=== PATIENT | female | born 1995 | race Caucasian/White ===

== ENCOUNTER 2016-07-02 12:38 | Emergency (ER) | payer OTHER ==
[2016-07-02] MEDS ORDERED: Ondansetron INJ* 2 MG/ML VIAL IV ONE (13:30)
[2016-07-02] MEDS ORDERED: NS 0.9% 1000 ML* 1,000 ML IV ONE (13:30)
[2016-07-02 13:57] LABS: Hematocrit 41 % (35-47); Hemoglobin 13.4 g/dl (12.0-16.0); Mean Corpuscular HGB Conc 33 g/dl (31-36); Mean Corpuscular Hemoglobin 28 pg (27-31); Mean Corpuscular Volume 84 fL (80-97); Mean Platelet Volume 6 um3 (7.4-10.4); Red Blood Count 4.82 10^6/ul (4.0-5.4); Red Cell Distribution Width 13 % (10.5-15); White Blood Count 7.6 10^3/ul (3.5-10.8)
[2016-07-02 14:12] LABS: Albumin 4.8 g/dL (3.2-5.2); BUN/Creatinine Ratio 17.9 (8-20); Calcium 9.9 mg/dL (8.6-10.3); EGFR African American 121.1 (>60); EGFR Non-African American 94.2 (>60); Globulin 3.2 g/dL (2-4); Potassium 3.7 mmol/L (3.5-5.0); Total Bilirubin 0.9 mg/dL (0.2-1.0)
--- NOTE | 2016-07-02 14:29 | RAD ---
INDICATION: Right upper quadrant pain COMPARISON: None TECHNIQUE: Longitudinal and transverse scans of the right upper quadrant were obtained. Doppler interrogation of the hepatic and portal venous system was performed. FINDINGS: Liver: The liver is normal in size and echogenicity. There are no focal masses. The liver measures 14.9 cm in cephalocaudal dimension. Vessels: There is normal hepatic and portal venous flow. Bile ducts: There is no evidence of intrahepatic or extrahepatic ductal dilatation. The common duct measures 0.2 cm. Gallbladder: The sonographic appearance of the gallbladder is normal. There is no evidence of cholelithiasis, thickening of the gallbladder wall, or pericholecystic fluid. Pancreas: The visualized pancreas appears normal Right kidney: The right kidney is normal in size and echogenicity. There are no masses or calculi. There is no evidence of hydronephrosis. The right kidney measures 11.7 x 3.5 x 4.0 cm. Fluid: There is no ascites. Other: None. IMPRESSION: NORMAL GALLBLADDER.
[2016-07-02 15:09] VITALS: BP 109/61
[2016-07-02 15:18] LABS: UR Preg Internal Control QC Line Present
[2016-07-02 15:22] LABS: Urine Bacteria Absent (Absent); Urine Bilirubin Negative (Negative); Urine Glucose Negative (Negative); Urine Nitrite Negative (Negative)
--- NOTE | 2016-07-02 15:38 | ED ---
Chuck Vigil Rebecca, scribed for Margarito Michelle MD on 07/02/16 at 1321 . Abdominal Pain/Female - HPI Summary HPI Summary: Pt is a 20 y/o F who presents to ED c/o abdominal pain. Pain began suddenly 4 days ago and has been intermittent since onset, wavering in intensity. Pain is diffuse with radiation to the back. Pain is currently ranked 7/10 and characterized as sharp. Sx aggravated by PO intake and walking, alleviated by nothing. Additionally c/o N/V/D, decreased urine output. Denies blood in stools. Denies fever, chills. Reports she cannot keep PO intake down and has lost 4 pounds in the last 48 hours. No recent sick contact. No recent Abx or hospital stays. FHx gallbladder disease (aunt and grandmother in their late 20s/ early 30s). LNMP 06/10/2016, takes oral contraceptives. - History of Current Complaint Chief Complaint: EDAbdPain Stated Complaint: ABD PAIN Time Seen by Provider: 07/02/16 13:20 Hx Obtained From: Patient Hx Last Menstrual Period: ended last week Onset/Duration: Sudden Onset, Lasting Days - 4 days, Still Present Timing: Intermittent Episode Lasting Severity Initially: Moderate Severity Currently: Severe Pain Intensity: 7 Pain Scale Used: 0-10 Numeric Location: Diffuse Radiates: Yes Radiates to: Back Character: Sharp Aggravating Factor(s): Food, Movement - walking, Other: - Water Alleviating Factor(s): Nothing Associated Signs and Symptoms: Positive: Nausea, Vomiting, Diarrhea, Other: - Decreased urine output; Denies chills. Negative: Fever, Blood in Stool Allergies/Adverse Reactions: Allergies Allergy/AdvReac Type Severity Reaction Status Date / Time No Known Allergies Allergy Unverified 08/14/14 17:39 PMH/Surg Hx/FS Hx/Imm Hx Endocrine/Hematology History: Denies: Hx Diabetes, Hx Thyroid Disease Cardiovascular History: Denies: Hx Hypercholesterolemia, Hx Hypertension, Hx Peripheral Vascular Disease Respiratory History: Denies: Hx Asthma, Hx Chronic Obstructive Pulmonary Disease (COPD) GI History: Denies: Hx Ulcer Musculoskeletal History: Denies: Hx Arthritis, Hx Rheumatoid Arthritis, Hx Osteoporosis Sensory History: Denies: Hx Cataracts, Hx Contacts or Glasses, Hx Glaucoma Opthamlomology History: Denies: Hx Cataracts, Hx Contacts or Glasses, Hx Glaucoma Neurological History: Denies: Hx Headaches, Hx Seizures, Hx Transient Ischemic Attacks (TIA) Psychiatric History: Reports: Hx Anxiety Denies: Hx Depression - Surgical History Surgery Procedure, Year, and Place: wiwsdom teeth Infectious Disease History: No Infectious Disease History: Denies: Hx Clostridium Difficile, Hx Hepatitis, Hx Human Immunodeficiency Virus (HIV), Hx of Known/Suspected MRSA, Hx Shingles, Hx Tuberculosis, Hx Known/ Suspected VRE, Hx Known/Suspected VRSA, History Other Infectious Disease, Traveled Outside the [place] in Last 30 Days - Family History Known Family History: Positive: Other - FHx gallbladder disease (grandmother and aunt) - Social History Occupation: Student Alcohol Use: None Substance Use Type: Reports: None Smoking Status (MU): Never Smoked Tobacco Review of Systems Negative: Fever, Chills Negative: Erythema Negative: Sore Throat Negative: Chest Pain Negative: Shortness Of Breath, Cough Positive: Abdominal Pain - diffuse with radiaiotn to the back, Vomiting, Diarrhea, Nausea Positive: other - Decreased urine output and blood in stool. Negative: dysuria , hematuria Negative: Myalgia, Edema Negative: Rash Neurological: Other - Negative dizziness All Other Systems Reviewed And Are Negative: Yes Physical Exam - Summary Physical Exam Summary: Constitutional: Well-developed, Well-nourished, Alert. (-) Distressed Skin: Warm, Dry HENT: Normocephalic; Atraumatic Eyes: Conjunctiva normal Neck: Musculoskeletal ROM normal neck. (-) JVD, (-) Stridor, (-) Tracheal deviation Cardio: Rhythm regular, rate normal, Heart sounds normal; Intact distal pulses; The pedal pulses are 2+ and symmetric. Radial pulses are 2+ and symmetric. (-) Murmur Pulmonary/Chest wall: Effort normal. (-) Respiratory distress, (-) Wheezes, (-) Rales Abd: Soft, (-) Distension, (-) Guarding, (-) Rebound, Epigastric tenderness Musculoskeletal: (-) Edema Lymph: (-) Cervical adenopathy Neuro: Alert, Oriented x3 Psych: Mood and affect Normal Triage Information Reviewed: Yes Vital Signs On Initial Exam: Initial Vitals Temp Pulse Resp BP Pulse Ox 98.4 F 73 20 121/77 99 07/02/16 12:46 07/02/16 12:46 07/02/16 12:46 07/02/16 12:46 07/02/16 12:46 Vital Signs Reviewed: Yes - Domingo Coma Scale Coma Scale Total: 15 Diagnostics - Vital Signs Vital Signs Temp Pulse Resp BP Pulse Ox 07/02/16 12:48 98.2 F 78 20 121/77 100 07/02/16 12:46 98.4 F 73 20 121/77 99 - Laboratory Result Diagrams: 07/02/16 13:46 07/02/16 13:46 Lab Statement: Any lab studies that have been ordered have been reviewed, and results considered in the medical decision making process. - Ultrasound No standard instances Ultrasound Interpretation: No Acute Changes - Gallbladder US: Normal gallbladder. Ultrasound Interpretation Completed By: Radiologist Re-Evaluation - Re-Evaluation First Eval Re-Evaluation Time: 15:06 Change: Improved Comment: Discussed D/C plan with pt. Pt is feeling significantly better. Abdominal Pain Fem Course/Dx - Course Course Of Treatment: Pt is a 20 y/o F who presents to ED c/o diffuse abodminal pain with radiaiton to the back for 4 days, aggravated by PO intake and walking. Additionally c/o N/V/D and decreased urine output. Denies blood in stools, fever, chills. FHx gallbladder disease (aunt and grandmother in late 20s /early 30s). Gallbladder US reveals no acute findings. Pt will be D/C to home with a Dx of gastroenteritis and a follow up with her PCP. She is agreeable with this plan. - Diagnoses Provider Diagnoses: Gastroenteritis Discharge - Discharge Plan Condition: Stable Disposition: HOME Prescriptions: Ondansetron ODT TAB* [Zofran 4 MG Odt TAB*] 4 mg PO Q8H PRN #12 tab.odt PRN Reason: Nausea/Vomiting Patient Education Materials: Gastroenteritis (ED) Referrals: Kay Rockwell MD [Primary Care Provider] - 5 Days (Follow up in 3-5 days. ) Additional Instructions: RETURN TO THE EMERGENCY DEPARTMENT FOR CHANGING OR WORSENING SYMPTOMS The documentation as recorded by the Chuck murcia Rebecca accurately reflects the service I personally performed and the decisions made by , Margarito Michelle MD.
== END 2016-07-02 15:09 | disposition home or self-care (01) ==
LOC: ED 12:38
DX: K52.9 Noninfective gastroenteritis and colitis, unspecified (principal)
CPT/HCPCS: 36415; 76705; 80053; 81003; 81015; 81025; 83605; 83690; 85025; 99282; J2405